=== PATIENT | male | born 1980 | race Caucasian/White ===

== ENCOUNTER 2017-12-28 07:14 | Emergency (ER) | payer OTHER ==
[~2017-12-28] VITALS: Ht 160 cm; Wt 81.7 kg
[2017-12-28 07:29] VITALS: BP 119/74
[2017-12-28] MEDS ORDERED: TRAMADOL 50 MG50 MG PO (08:04)
== END 2017-12-28 08:10 | disposition home or self-care (01) ==
LOC: ER 07:14
DX: K02.9 Dental caries, unspecified (principal); K04.7 Periapical abscess without sinus